=== PATIENT | male | born 1980 | race Caucasian/White ===

== ENCOUNTER 2017-01-09 20:03 | Emergency (ER) | payer MEDICARE ==
[~2017-01-09 20:03] MED LIST: ALLEGRA ALLERG180 MG PO; AUGMENTIN 500-1 EACH PO; BACTRIM DS TAB1 EACH PO; CHILDRENS CHEWA81 MG PO; FLONASE 0.05% N16 GM; HCTZ25 MG PO; HYDROCODON-ACE1 EAC6 PO; LEVAQUIN500 MG PO; LISINOPRIL10 MG PO; NEOSPORIN TOP; NEURONTIN800 MG PO; NICODERM 14MG PA1 EA TD; NICODERM 21MG PA1 EA TD; OFLOXACIN5 M1 AU; PAIN RELIEF650 MG PO; PROTONIX40 MG PO; SINGULAIR10 MG PO; ZESTRIL20 MG PO; ZOFRAN4 MG PO
[2017-01-09 22:16] LABS: BASO % 0.2 % (0.2-1.2); EOS # 0.3 10_X3_uL (0.0-0.5); GRAN # 6.5 10_X3_uL (1.8-5.4); GRAN % 63.7 % (34.0-67.9); HEMATOCRIT 44.1 % (40-51); HEMOGLOBIN 14.5 g/dL (13.7-17.5); LYMPH # 2.3 10_X3_uL (1.3-3.6); LYMPH % 22.9 % (21.8-53.1); MEAN CORPUSCULAR HEMOGLOBIN 30.9 pg (27.0-33.0); MEAN CORPUSCULAR HGB CONC 32.9 g/dL (32.0-36.0); MEAN CORPUSCULAR VOLUME 93.8 fL (79-92); MEAN PLATELET VOLUME 9.9 fl (7.5-11.5); MONO % 10.2 % (5.3-12.2); PLATELET COUNT 254 x10_3/uL (163-337); RED CELL DISTRIBUTION WIDTH 12.7 % (11.6-14.4); WHITE BLOOD COUNT 10.2 x10_3/uL (4.2-9.1)
[2017-01-09 22:32] LABS: BLOOD UREA NITROGEN 9 mg/dL (7-18); CALCIUM 8.6 mg/dL (8.7-10.7); CARBON DIOXIDE 29 mmol/L (21-32); CREATININE 0.8 mg/dL (0.6-1.3); GLUCOSE,RANDOM 125 mg/dL (70-99); POTASSIUM 3.9 mmol/L (3.5-5.1); SODIUM 143 mmol/L (136-145); URIC ACID 6.4 mg/dL (3.5-7.2)
== END 2017-01-09 23:25 | disposition home or self-care (01) ==
LOC: ER 20:03
PROVIDERS: Internal Medicine
DX: L03.116 Cellulitis of left lower limb (principal); L03.115 Cellulitis of right lower limb; R60.0 Localized edema; K21.9 Gastro-esophageal reflux disease without esophagitis; F17.210 Nicotine dependence, cigarettes, uncomplicated; Z79.82 Long term (current) use of aspirin; Z79.899 Other long term (current) drug therapy
CPT/HCPCS: 36415; 80048; 84550; 85025; 85379; 99283